=== PATIENT | female | born 1975 | race Hispanic/Latino ===

== ENCOUNTER 2022-04-06 16:01 | Emergency (ER) | payer MEDICAID, SELFPAY ==
[2022-04-06 16:14] VITALS: BP 115/79; PULSE 79; RESP 16; TEMP 36.2; O2SAT 98
--- NOTE | 2022-04-06 16:49 | ED.WOUNDLAC ---
HPI - Wound/Laceration General Chief Complaint: Skin/Abscess/Foreign Body Stated Complaint: Infection in finger Time Seen by Provider: 04/06/22 16:44 Source: patient Mode of arrival: ambulatory Limitations: no limitations History of Present Illness HPI narrative: Patient presents today complaining of pain to her left fourth finger. States she bit off a hangnail 2 days ago causing a small wound. Since that time the redness and pain has gotten worse. She has been cleaning the area with peroxide. She currently rates her pain 8/10 and has tried no [id number] medication for pain prior to arrival. Related Data Home Medications Medication Instructions Recorded Confirmed citalopram 40 mg tablet mg 04/06/22 doravirine 100 mg-lamivudine 300 tablet PO 04/06/22 mg-tenofovir disoproxil 300 mg tablet (Delstrigo) hydroxyzine HCl 25 mg tablet mg 04/06/22 prazosin 5 mg capsule mg 04/06/22 quetiapine 100 mg tablet mg 04/06/22 quetiapine 200 mg tablet mg 04/06/22 Allergies Allergy/AdvReac Type Severity Reaction Status Date / Time No Known Allergies Allergy Verified 04/06/22 16:35 Review of Systems Review of Systems: CONSTITUTIONAL: Denies body aches, fever, chills, or sweats. EYES: Denies visual changes, redness, or discharge. ENT: Denies rhinorrhea, congestion, sore throat, or otalgia. CARDIOVASCULAR: Denies chest pain, palpitations, or edema. RESPIRATORY: Denies cough or dyspnea. GASTROINTESTINAL: Denies abdominal pain, nausea, vomiting, or diarrhea. GENITOURINARY: Denies dysuria or hematuria. SKIN: Denies rash, itching. +Small wound to left fourth finger MUSCULOSKELETAL: Denies back pain, joint pain, or myalgia. NEUROLOGIC: Denies headache, numbness, tingling, or weakness. PSYCH: Denies depression or anxiety. PMFSH Comments At time of signature, I have reviewed and agree with nursing past medical, surgical, social and family history unless otherwise noted. Please see nursing chart for further information. There is no relevant family history pertinent to the presenting complaint Exam Narrative: GENERAL: Well-appearing, well-nourished, and in no acute distress. HEAD: Normocephalic, atraumatic. EYES: EOMI. No redness or drainage. Conjunctivae normal. ENT: Mucous membranes pink and moist. NECK: Normal AROM. CHEST: No respiratory distress. EXTREMITIES: Normal range of motion. No edema. SKIN: Warm, dry, no rash. Capillary refill normal. Normal skin turgor.Left fourth finger: 4 x 3 cm open wound to the nail fold. Erythematous base with some scant purulent discharge. Tender to palpation.Distal sensation intact. Capillary refill normal. Full range of motion of the finger. NEURO: No focal deficits. Alert and oriented x3. Gait steady. PSYCH: Normal affect. No signs of depression or anxiety. Course Course Level of Care: Express Care Visit Vital Signs Vital signs: Vital Signs Temperature 97.1 F L 04/06/22 16:14 Pulse Rate 79 04/06/22 16:14 Respiratory Rate 16 04/06/22 16:14 Blood Pressure 115/79 04/06/22 16:14 Pulse Oximetry 98 04/06/22 16:14 Oxygen Delivery Room Air 04/06/22 16:14 Temperature 97.1 F L 04/06/22 16:14 Pulse Rate 79 04/06/22 16:14 Respiratory Rate 16 04/06/22 16:14 Blood Pressure 115/79 04/06/22 16:14 Pulse Oximetry 98 04/06/22 16:14 Oxygen Delivery Room Air 04/06/22 16:14 Reviewed MDM - Wound/Laceration Differential Diagnosis Differential diagnosis: Likely laceration, avulsion of skin and other (Cellulitis) Critical Care Time Critical Care Time Critical Care Time: No Discharge Plan Discharge Clinical Impression: Open wound of finger, infected Qualifiers: Encounter type: initial encounter Qualified Code(s): S61.209A - Unspecified open wound of unspecified finger without damage to nail, initial encounter Patient Disposition: Home, Self-Care Condition: Stable Instructions: Antibiotic Form Additional Instructions:
== END 2022-04-06 16:57 | disposition home or self-care (01) ==
PROVIDERS: Emergency Provider Nurse Practitioner
DX: S61.205A Unspecified open wound of left ring finger without damage to nail, initial encounter (principal); L08.9 Local infection of the skin and subcutaneous tissue, unspecified; X58.XXXA Exposure to other specified factors, initial encounter; Z21 Asymptomatic human immunodeficiency virus [HIV] infection status; Z85.42 Personal history of malignant neoplasm of other parts of uterus
CPT/HCPCS: 99203; G0463

== ENCOUNTER 2023-10-07 09:53 | Emergency (ER) | payer MEDICARE, MEDICAID, SELFPAY ==
[2023-10-07 10:40] VITALS: BP 124/84; PULSE 61; RESP 16; TEMP 36.7; O2SAT 99
--- NOTE | 2023-10-07 11:10 | ED.EYEPROB ---
HPI - Eye Problem General Chief complaint: Eye Problems Stated complaint: right eye red Time Seen by Provider: 10/07/23 11:10 Source: patient, RN notes reviewed and old records reviewed Mode of arrival: ambulatory Limitations: no limitations History of Present Illness HPI Narrative: 48-year-old female presents to the [facility] with complaints of right eye redness that started on Friday. Gross crusted over the last 2 days. Patient states that her grandkids had conjunctivitis last week. Patient states that she normally wears glasses, vision was 20 70 bilateral, right and left Patient did not have her glasses with her Denies any change in vision currently. Denies any trauma to the eye Onset (ago): day(s) (2) Treatments Prior to Arrival: OTC eye drops Related Data Home Medications Medication Instructions Recorded Confirmed citalopram 40 mg tablet (Celexa) 40 mg PO DAILY 04/06/22 10/07/23 doravirine 100 mg-lamivudine 300 1 tablet PO DAILY 04/06/22 10/07/23 mg-tenofovir disoproxil 300 mg tablet (Delstrigo) hydroxyzine HCl 25 mg tablet 25 mg PO DAILY 04/06/22 10/07/23 prazosin 5 mg capsule 5 mg PO DAILY 04/06/22 10/07/23 quetiapine 100 mg tablet 100 mg PO DAILY 04/06/22 10/07/23 quetiapine 200 mg tablet 200 mg PO DAILY 04/06/22 10/07/23 buspirone 5 mg tablet 5 mg PO TID 10/07/23 10/07/23 cabotegravir ER 600 mg/3 See Rx Instructions .Route .COMPLEX 10/07/23 10/07/23 mL-rilpivirine ER 900 mg/3mL IM suspension,ER (Cabenuva) ibuprofen 800 mg tablet 800 mg PO DAILY 10/07/23 10/07/23 pantoprazole 40 mg tablet,delayed 40 mg PO DAILY 10/07/23 10/07/23 release semaglutide 14 mg tablet (Rybelsus) 14 mg PO DAILY 10/07/23 10/07/23 Allergies Allergy/AdvReac Type Severity Reaction Status Date / Time No Known Allergies Allergy Verified 10/07/23 11:10 Review of Systems Review of Systems: All systems reviewed & are unremarkable except as noted in HPI and below Constitutional: Constitutional: Reports no additional constitutional complaints Eyes: Eyes: Reports as per HPI, Reports eye discharge, Reports irritation and Reports itchy eyes ENT: Reports system reviewed and no additional complaints, except as documented Cardiovascular: Cardiovascular: Reports no additional cardiovascular complaints, Denies chest pain and Denies dyspnea Respiratory: Respiratory: Reports no additional respiratory complaints, Denies chest congestion, Denies cough and Denies dyspnea Gastrointestinal: Gastrointestinal: Reports no additional gastrointestinal complaints, Denies abdominal pain, Denies nausea and Denies vomiting Musculoskeletal: Musculoskeletal: Reports no additional musculoskeletal complaints Integumentary/Breasts: Skin/Breast: Reports system reviewed and no additional complaints, except as docu Neurologic: Reports system reviewed and no additional complaints, except as documented Psychiatric: Psychiatric: Reports no additional psychiatric complaints Allergic/Immunologic: Allergic/Immunologic: Reports no additional allergic/immunologic complaints PMFSH Past Medical History Medical History Cardiomyopathy H/O gastroesophageal reflux (GERD) History of diabetes mellitus, type II HIV (human immunodeficiency virus infection) Comments At the time of my signature, I reviewed and agree with the nursing past medical, surgical, social, and family history. There is no relevant family history pertinent to the patient complaint. Exam Const: General: cooperative, healthy appearing, comfortable, no acute distress, well developed, alert and well nourished Nutritional Appearance: well nourished and obese Orientation/consciousness: patient oriented x3 Limitations: no limitations HENMT: Head: normal to inspection Ears: hearing grossly normal bilaterally and external ears normal Face/Nose/Sinus: Normal external nose present, Normal nares present, Normal nasal mucous membranes and turbinates
== END 2023-10-07 11:24 | disposition home or self-care (01) ==
PROVIDERS: Emergency Provider Nurse Practitioner
DX: H10.33 Unspecified acute conjunctivitis, bilateral (principal); E11.9 Type 2 diabetes mellitus without complications; Z79.899 Other long term (current) drug therapy; Z79.1 Long term (current) use of non-steroidal anti-inflammatories (NSAID)
CPT/HCPCS: 99213; G0463

== ENCOUNTER 2024-08-29 10:59 | Emergency (ER) | payer MEDICARE, SELFPAY ==
[2024-08-29 11:08] VITALS: BP 129/88; PULSE 83; RESP 16; TEMP 36.2; O2SAT 98
--- NOTE | 2024-08-29 11:22 | ED.URI ---
HPI - URI/Sore Throat General Chief Complaint: Upper Respiratory Infection Stated Complaint: Wheezing/Cough Time Seen by Provider: 08/29/24 11:22 Source: patient, RN notes reviewed and old records reviewed Mode of arrival: ambulatory Limitations: no limitations History of Present Illness HPI Narrative: Patient presents with complaints of chest congestion. She reports that illness began about 2 weeks ago with cold-like symptoms that have worsened over the past week. She reports fatigue, increased phlegm production, intermittent wheezing. She has been using an albuterol inhaler with moderate relief. She denies fever, does report some chills and sweats. She denies any shortness of breath. Related Data Home Medications ?Medication ?Instructions ?Recorded ?Confirmed ?Last Taken ?Type citalopram 40 mg tablet (Celexa) 40 mg PO DAILY 04/06/22 08/29/24 Unknown History doravirine 100 mg-lamivudine 300 1 tablet PO DAILY 04/06/22 10/07/23 Unknown History mg-tenofovir disoproxil 300 mg tablet (Delstrigo) hydroxyzine HCl 25 mg tablet 25 mg PO DAILY 04/06/22 08/29/24 Unknown History prazosin 5 mg capsule 5 mg PO DAILY 04/06/22 08/29/24 Unknown History quetiapine 200 mg tablet 200 mg PO DAILY 04/06/22 08/29/24 Unknown History buspirone 5 mg tablet 5 mg PO TID 10/07/23 08/29/24 Unknown History cabotegravir ER 600 mg/3 See Rx Instructions .Route .COMPLEX 10/07/23 08/29/24 Unknown History mL-rilpivirine ER 900 mg/3mL IM suspension,ER (Cabenuva) ibuprofen 800 mg tablet 800 mg PO DAILY 10/07/23 08/29/24 Unknown History pantoprazole 40 mg tablet,delayed 40 mg PO DAILY 10/07/23 08/29/24 Unknown History release semaglutide 14 mg tablet (Rybelsus) 14 mg PO DAILY 10/07/23 08/29/24 Unknown History buspirone 10 mg tablet 10 mg PO TID 08/29/24 08/29/24 Unknown History carvedilol 6.25 mg tablet 6.25 mg PO .QD 08/29/24 08/29/24 Unknown History gabapentin 800 mg tablet 800 mg PO TID 08/29/24 08/29/24 Unknown History Allergies Allergy/AdvReac Type Severity Reaction Status Date / Time No Known Allergies Allergy Verified 08/29/24 11:01 Review of Systems Review of Systems: All systems reviewed & are unremarkable except as noted in HPI and below Constitutional: Constitutional: Reports no additional constitutional complaints ENT: Reports system reviewed and no additional complaints, except as documented and Reports nasal congestion Cardiovascular: Cardiovascular: Reports no additional cardiovascular complaints Respiratory: Respiratory: Reports no additional respiratory complaints, Reports change in phlegm color, Reports chest congestion, Reports cough, Reports excessive phlegm production and Reports wheezing Gastrointestinal: Gastrointestinal: Reports no additional gastrointestinal complaints [facility] Past Medical History Medical History History of diabetes mellitus, type II Cardiomyopathy H/O gastroesophageal reflux (GERD) HIV (human immunodeficiency virus infection) Comments At the time of my signature, I reviewed and agree with the nursing past medical, surgical, social, and family history. There is no relevant family history pertinent to the patient complaint. Exam Const: General: cooperative, no acute distress, alert and awake Orientation/consciousness: oriented to person, oriented to place and oriented to time HENMT: Head: normal to inspection Resp: Effort & Inspection: normal respiratory effort and able to speak in complete sentences Auscultation: clear to auscultation bilaterally, no crackles, no rales, no rhonchi and no wheezes Cardio: Palpation: normal PMI Rate: regular rate Rhythm: regular rhythm Heart sounds: S1 normal heart sound present and S2 normal heart sound present Neuro: General: oriented to person, oriented to place and oriented to time Cranial nerves: Yes CN's II-XII intact bilaterally Psych: Appearance: grossly normal Thought process: Normal thought process present Insight: Good insight present (Psych) Judgement: Good judgement present (Psych) Course Course Emergency Course: Patient with complicated medical history but reassuring physical exam presents with symptoms that correlate with atypical pneumonia that is prevalent within the community. She is nontoxic appearing, stable for discharge home on p.o. antibiotic therapy with steroids and bronchodilators. States that she has plenty of albuterol at home already and does not need a refill. Discharge instructions reviewed with patient, as well as provided in writing per nursing staff. The instructions also include specific and strict return/GO TO THE ER as well as f/u information. All questions have been answered, and the patient deny any further questions with discharge and discharge plan. Some parts of this dictation were generated by voice recognition software and may contain typographical and/or grammatical inaccuracies. Level of Care: Express Care Visit Vital Signs Vital signs: Vital Signs Temperature 97.1 F L 08/29/24 11:08 Pulse Rate 83 08/29/24 11:08 Respiratory Rate 16 08/29/24 11:08 Blood Pressure 129/88 08/29/24 11:08 Pulse Oximetry 98 08/29/24 11:08 Oxygen Delivery Room Air 08/29/24 11:08 Temperature 97.1 F L 08/29/24 11:08 Pulse Rate 83 08/29/24 11:08 Respiratory Rate 16 08/29/24 11:08 Blood Pressure 129/88 08/29/24 11:08 Pulse Oximetry 98 08/29/24 11:08 Oxygen Delivery Room Air 08/29/24 11:08 Reviewed Discharge Plan Discharge Clinical Impression: Atypical pneumonia Patient Disposition: Home, Self-Care Condition: Stable Instructions: Antibiotic Form, Community Acquired Pneumonia (ED) Additional Instructions: Take medications as prescribed. Follow-up with primary care provider. Emergency department for any new or worse symptoms Patient Language: Kittitian Prescriptions: New prednisone 50 mg tablet 50 mg PO DAILY Qty: 5 0RF doxycycline hyclate 100 mg capsule 100 mg PO BID Qty: 20 0RF No Action citalopram [Celexa] 40 mg tablet 40 mg PO DAILY quetiapine 200 mg tablet 200 mg PO DAILY prazosin 5 mg capsule 5 mg PO DAILY hydroxyzine HCl 25 mg tablet 25 mg PO DAILY Delstrigo 100-300-300 mg tablet 1 tablet PO DAILY buspirone 5 mg tablet 5 mg PO TID ibuprofen 800 mg tablet 800 mg PO DAILY pantoprazole 40 mg tablet,delayed release (DR/EC) 40 mg PO DAILY Rybelsus 14 mg tablet 14 mg PO DAILY Cabenuva 600 mg/3 mL- 900 mg/3 mL suspension,extended release See Rx Instructions .ROUTE .COMPLEX Rx Instructions: Rx carvedilol 6.25 mg tablet 6.25 mg PO .QD gabapentin 800 mg tablet 800 mg PO TID buspirone 10 mg tablet 10 mg PO TID Follow-up/Referrals: [facility] [Primary Care Provider] - 2 Weeks Time of Disposition: 11:57
== END 2024-08-29 12:00 | disposition home or self-care (01) ==
PROVIDERS: Emergency Provider Nurse Practitioner Family
DX: J18.9 Pneumonia, unspecified organism (principal); E11.9 Type 2 diabetes mellitus without complications; Z79.899 Other long term (current) drug therapy; Z79.1 Long term (current) use of non-steroidal anti-inflammatories (NSAID)
CPT/HCPCS: 99213; G0463